=== PATIENT | male | born 1985 | race Caucasian/White ===

== ENCOUNTER 2021-01-06 11:50 | Inpatient (IN) | payer OTHER ==
[~2021-01-06] VITALS: Ht 165.1 cm; Wt 62.1 kg
[2021-01-06 12:02] VITALS: BP 129/77
--- NOTE | 2021-01-06 12:04 | NUR ---
YAO BARAHONA FRIEND [address] [facility] [id number]
[2021-01-06 13:45] LABS: BASOPHILS 0.3 % (0.0-2.0); EOSINOPHILS 0.1 % (0.0-3.0); HEMATOCRIT 45.9 % (42.0-52.0); HEMOGLOBIN 15.7 gm/dL (14.0-18.0); LYMPHOCYTES 5.2 % (24.0-44.0); MCH 31.3 pg (26.0-34.0); MCHC 34.2 g/dL (28.0-37.0); MCV 91.5 fL (80.0-100.0); MONOCYTES 5.1 % (1.0-8.0); PLATELET COUNT 276 thou/uL (150-400); POLYS 89.3 % (36.0-66.0); RBC 5.02 mil/uL (4.50-6.00); RDW 12.8 % (10.5-14.5); WBC 14.5 thou/uL (4.0-11.0)
[2021-01-06 13:46] LABS: URINE BILIRUBIN NEGATIVE (Negative); URINE BLOOD 1+ (Negative); URINE CLARITY CLEAR; URINE COLOR YELLOW; URINE GLUCOSE-RANDOM* NEGATIVE (Negative); URINE KETONES NEGATIVE (Negative); URINE LEUKOCYTES-REFLEX NEGATIVE (Negative); URINE NITRITE-REFLEX NEGATIVE (Negative); URINE PROTEIN (DIPSTICK) NEGATIVE (Negative); URINE SPECIFIC GRAVITY 1.025 (1.005-1.035); URINE UROBILINOGEN 0.2 E.U./dl (0.2-1.0)
[2021-01-06 14:05] LABS: BACTERIA-REFLEX 1-9 Few /HPF (None Seen); CASTS None Seen /LPF (None Seen); CRYSTALS None Seen /LPF (None Seen); MUCUS >6 Heavy strn/LPF (None Seen); SQUAMOUS 0-3 Few /LPF (0-3); URINE RBC 0-2 Rare /HPF (0-2); URINE WBC-REFLEX 0-5 Rare /HPF (0-5)
[2021-01-06 14:11] LABS: CREATININE 0.7 mg/dL (0.7-1.3); POTASSIUM 3.4 mmol/L (3.5-5.1)
[2021-01-06 14:17] LABS: ALBUMIN 4.4 g/dL (3.4-5.0); TOTAL PROTEIN 7.9 g/dL (6.4-8.2)
[2021-01-06 18:26] VITALS: BP 127/81
[2021-01-06 19:02] VITALS: BP 128/75
[2021-01-06 22:01] VITALS: BP 133/89
[2021-01-06 23:48] VITALS: BP 126/83
--- NOTE | 2021-01-07 01:09 | NUR ---
PT ADMITTED AT 21:50 FROM RR. S/P EMERGENT APPENDECTOMY ALERT AND ORIENTED X4. RWANDAN SPEAKING ONLY. ADMISSION QUESTIONS OBTAINED WITH HELP OF RWANDAN SPEAKING DOUBLE BACK OPERATOR VIA IPAD. HRR . LCTA AND UNLABORED ON RA. VSS LOW GRADE TEMP. 99.6. ABDOMINAL INCISIONS LOOK WELL APPROXIMATED. NO BLEEDING NOTED. ALL BRINE PURIFIER. BT NPO FOOR NOW UNTIL BF. WILL ADVANCE TOLERATED. NO C/O N/V PRESENTLY. NO S/S COVID NOTED. PT INSTRUCTED ON FALL PRECAUTIONS. CALL LIGHT IN REACH. BED ALARM ON. IVFS INFUSING WITHPUT DIFFICULTY.
[2021-01-07 03:58] VITALS: BP 108/68
--- NOTE | 2021-01-07 05:52 | NUR ---
PT RESTING QUIETLY. RATED ABDOMINAL PAIN 4/10 AND HEAD ACHE 4/10 . 1 MG MORPHINE IV GIVEN. BOWEL SOUNDS ARE HYPOACTIVE. NPO FOR NOW UNTIL BREAKFAST . NO C/O NAUSEA OR VOMITING NOTED.
[2021-01-07 06:30] LABS: BASOPHILS 0.1 % (0.0-2.0); HEMATOCRIT 43.4 % (42.0-52.0); HEMOGLOBIN 14.6 gm/dL (14.0-18.0); MCHC 33.7 g/dL (28.0-37.0); MCV 91.9 fL (80.0-100.0); MONOCYTES 0.8 % (1.0-8.0); PLATELET COUNT 275 thou/uL (150-400); POLYS 90.1 % (36.0-66.0); RBC 4.72 mil/uL (4.50-6.00); RDW 12.7 % (10.5-14.5); WBC 7.8 thou/uL (4.0-11.0)
[2021-01-07 06:47] LABS: ALBUMIN 3.6 g/dL (3.4-5.0); CALCIUM 8.2 mg/dL (8.5-10.1); CREATININE 0.9 mg/dL (0.7-1.3); PHOSPHORUS 3.1 mg/dL (2.5-4.9); POTASSIUM 3.6 mmol/L (3.5-5.1)
[2021-01-07 07:30] VITALS: BP 109/68
--- NOTE | 2021-01-07 13:19 | NUR ---
INITIAL ASSESSMENT: Received consult for discharge planning. SW reviewed chart and spoke with nursing. Pt was admitted from home due to acute appendicitis. Pt had emergent surgery yesterday. Pt had positive COVID test and is in Enhanced Isolation. Pt is not requiring O2. Pt is on IV abx and IV steroids. ID consulted. Pt's primary language is Thai. Pt does not have health insurance. Med Assist to follow up with pt to assist with possible Medicaid application/financial assistance. FARSHAD is following to assist as needed with discharge planning.
--- NOTE | 2021-01-07 16:27 | NUR ---
CARE ASSUMED AT 0700, PT ALERT AND ORIENTED X4, CYPRIOT SPEAKING. PT DENIES CHEST PAIN, NAUSEA AND VOMITTING. MONOR ABDOMINA PAIN DUE TO LAP SURGERY, PT STATES PAIN IS TOLERABLE. BOWEL SOUNDS PRESENT, BUT HYPOACTIVE. PT STATED HE IS PASSING GAS. USES CALL LIGHT APPROPRIATELY, DENIES ANY NEEDS SANDRA. WILL CONTINUE TO MONITOR.
--- NOTE | 2021-01-07 16:36 | HC ---
[facility] [place] [address] [place] [address] CONSULTATION Name: TALA ALVAREZ Room #: 353-P ADM IN M.R.#: [id number] Admission: 01/06/21 Attend Phys: Adebayo Kent MD Discharge: Date of : 81 Report #: [id number] THIS REPORT FOR: cc: FAM - No family physician/PCP FAM - No family physician/PCP Maurice Valdez MD ~ DATE OF SERVICE: 01/07/2021 INFECTIOUS DISEASE CONSULTATION ATTENDING PHYSICIAN: Dr. Kent. REASON FOR EVALUATION: Acute appendicitis, also positive COVID-19 testing. HISTORY OF PRESENT ILLNESS: Chart reviewed, patient examined. This is a 35-year-old without significant medical history. He is a primary Kinyarwanda speaker, who was admitted through the Emergency Room with complaints of abdominal pain, had associated nausea with emesis as well. Apparently denied fevers, was evaluated and CT raised question of acute appendicitis. He was taken, underwent laparoscopic evaluation, was confirmed to have appendicitis and underwent appendectomy, uncomplicated, no evidence of perforation. Postop, does have some degree of pain, discomfort. As per the evaluation, was confirmed to have a positive COVID-19 PCR, was empirically started on therapy with ceftriaxone and azithromycin. Other inflammatory markers were generally unremarkable. Urinalysis, 0-5 white cells. He denies any significant pulmonary or gastrointestinal complaints at this point. ALLERGIES: None known. MEDICATIONS: Include azithromycin, ascorbic acid, ceftriaxone, zinc, methylprednisolone, oxycodone, docusate, ibuprofen, acetaminophen, hydromorphone as needed. PAST MEDICAL HISTORY: Otherwise, unremarkable. SOCIAL HISTORY: Nonsmoker. No illicit drug use. Occasional ethanol. FAMILY HISTORY: Noncontributory. REVIEW OF SYSTEMS: Otherwise, unremarkable. PHYSICAL EXAMINATION: GENERAL: He is alert, cooperative, in peve-tr-cvplywum distress, reasonably well nourished. VITAL SIGNS: Temperature 99.3, pulse 104, respirations 20, blood pressure [facility] [address] [place] [address] CONSULTATION Name: TALA ALVAREZ Room #: [address] [place] [address]#: [id number] Admission: 01/06/21 Attend Phys: Adebayo Kent MD Discharge: Date of : 81 Report #: [id number] 109/68. SKIN: Warm, dry, no rashes. HEENT: Normocephalic. Extraocular muscles intact. NECK: Supple. LUNGS: Clear to auscultation bilaterally. HEART: Regular. Borderline tachycardic. I do not appreciate a murmur. ABDOMEN: Somewhat firm, mildly tender to percussion. The stab wounds are otherwise unremarkable. GENITOURINARY AND RECTAL: Deferred. LABORATORY DATA: Chest x-ray this morning showed no acute cardiopulmonary abnormality. Electrolytes: Sodium 137, potassium 3.6, chloride 104, bicarbonate is 22, anion gap of 11, BUN and creatinine 10 and 0.9, albumin of 3.6, estimated GFR of 95. CBC: White count 7.8, H and H 14.6 and 43.4, platelets of 275. Sed rate of 7. Procalcitonin less than 0.05. Ferritin 212. COVID-19 PCR was positive. Liver functions unremarkable. ASSESSMENT: Acute appendicitis without perforation. Additionally, has a positive coronavirus test. At this point, he is not symptomatic from the latter. We will plan to continue empiric therapy. At this point, he is taking p.o. well. Likely transition to oral antibiotics soon. In event of any clinical deterioration, especially from a pulmonary standpoint, I would like to introduce additional therapy such as ivermectin, remdesivir. Would increase activity as allowed. Encourage incentive spirometry. <ELECTRONICALLY SIGNED> By: Maurice Valdez MD 01/07/21 1636 [id number] Maurice Valdez MD /nt
[2021-01-07 19:19] VITALS: BP 96/55
--- NOTE | 2021-01-07 21:30 | NUR ---
PT WATCHING TV. IVF INTACT. PT USING PHONE EDUCATIONAL ADMINISTRATION TEACHER TO COMMUNICATE. MEDICATIONS PROVIDED. ABD LAP SITES DRY INTACT, BS DECREASED. PT REAMINS STEADY AND INDEP WITH URINAL NEEDS. PT PROVIDED FLUIDS.
[2021-01-08 04:50] VITALS: BP 105/68
[2021-01-08 07:50] VITALS: BP 113/74
[2021-01-08 10:38] VITALS: BP 113/74
[2021-01-08 10:42] VITALS: BP 113/74
--- NOTE | 2021-01-08 10:57 | NUR ---
Assess due to RD consult. Emergent surgery 01/06 for appendicitis. Pt also COVID +. diet has advanced to regular, eating 100% of meals. Low nutrition risk
--- NOTE | 2021-01-08 11:10 | NUR ---
DC anticipated today. Superintendent Service visited with the pt via phone in Macedonian. He is aware of dc and will need a covid cab ride home as well as assist with any dc scripts. Awaiting ID recommendations. Nursing aware of above and pt will be provided with the [place] version of the [facility] as well as the [facility] info regarding covid. He notes that he does not live with his friend Jacinta. His address is [address] [place] [address]. He has several roommates but they all work long hours and are not home at the same time. He will let them know he is covid positive and encourage them to wear masks in the home and get tested. Jacinta got tested earlier today. He is up ad olay and tolerating a po diet. He has a f/u with surgery in 2wks. He is feeling good and denies any dc concerns. Cm to vouch scripts and a cab ride this afternoon once his dc orders are finalized.
--- NOTE | 2021-01-08 12:15 | NUR ---
care assumed at 0700, pt alert and oriented x4, pt is vietnamese speaking, uses google translate. pt denies any nausea and vomitting. states pain is tolerable. bowel sounds active, had a bowel movement todya. anticipating for discharge today. case lashay nguyễn had a lengthy conversation with pt, explaining about isolating and cleaning house post covid. uses call light apporpriate.
[2021-01-08] MEDS ORDERED: MEDROLDOSEPACK PO (12:48)
[2021-01-08] MEDS ORDERED: MIRALAX17 GM PO (13:13)
[2021-01-08] MEDS ORDERED: IBUPROFEN 200200 M1 PO (13:13)
[2021-01-08] MEDS ORDERED: OXYCODONE HCL 55 MG PO (13:13)
[2021-01-08] MEDS ORDERED: ACETAMINOPHEN325 M1 PO (13:13)
[2021-01-08 14:09] VITALS: BP 113/74
--- NOTE | 2021-01-08 16:53 | NUR ---
DISCHARGE INSTRUCTION GIVEN AND EXPLAIN TO PT, NEW MEDICATIONS INFORMATION PRINTED OUT IN CHINESE FOR PT. INSTRUCTION ON HOW TO TAKE MEDICATIONS EXPLAIN USING A HOSPITAL INSURANCE CLERK. PT REPEATED INSTRUCTION TO ME AND DENIED ANY QUESTIONS. SPEND A LENGTHY AMOUNT OF TIME EXPLAINING INSTRUCTION TO PT. ALL PT BELINGINGS PACKED. IV D/C. WAITING FOR PT CAB TO GET HERE
--- NOTE | 2021-01-10 16:06 | PATH ---
[facility] [address] [place] [address] PATHOLOGY RPT PROCEDURE Name: TALA ALVAREZ Room #: 353-P [facility] IN M.R.#: [id number] Admission: 01/06/21 Date of : 81 Discharge: 01/08/21 Report #: [id number] Path Case #: [id number] [facility] Accession Number: [id number] . 01 Material submitted: . appendix - APPENDIX . 01 Clinical history: . APPENDICITIS . 02 Diagnosis: Appendix "appendix", appendectomy: - Acute suppurative appendicitis with inflammation extending into the serosa and into the fat. (SIVAN/db; 01/10/2021) LBQ 01/10/2021 1116 Local . 02 Electronically signed: . Christiano Tracy MD, Pathologist NPI- [id number] . 01 Gross description: . The specimen is received in formalin, labeled "Tala Alvarez, appendix". Received is a vermiform appendix measuring 9.5 cm in length by up to 1.1 cm in diameter with a large amount of attached mesoappendix. The serosal surface is pink-lino to dusky pink-mcgovern in appearance with overlying adhesions. The surgical margin is closed with a line of emery. The emery are removed and the new margin is inked black. Sectioning reveals sectioning reveals a patent lumen filled with a slight amount of fecal material. The specimen is submitted representatively in cassettes A1 and A2, with the proximal margin and bisected tip submitted in cassette A1. (CAA; 01/08/2021) QAC/QAC 01/08/2021 1058 Local . 02 Pathologist provided ICD-10: K35.80 . 02 CPT . 537334 Specimen Comment: Report sent to Performed at: [address] [id number] MD Christiano Tracy MD Phone: [phone] Performed at: 02 [facility] [id number] [place] [id number] [place] [address] PATHOLOGY RPT PROCEDURE Name: TALA ALVAREZ Room #: 353-P DIS IN M.R.#: [id number] Admission: 01/06/21 Date of : 81 Discharge: 01/08/21 Report #: [id number] Path Case #: [id number] MD Stacey Bond MD Phone: [phone]
== END 2021-01-08 18:12 | disposition home or self-care (01) | DRG 341 ==
LOC: ER 11:50 → EROBS 15:47 → 4S 18:59 → 3W 19:06
PROVIDERS: Emergency Medicine; Nurse Practitioner Family; ADMIT Surgery; ATTEND Surgery
PROC: 0DTJ4ZZ Resection of Appendix, Percutaneous Endoscopic Approach (ICD-10-PCS; principal; 2021-01-06)
DX: K35.80 Unspecified acute appendicitis (principal); U07.1 COVID-19; J12.82 Pneumonia due to coronavirus disease 2019; D72.829 Elevated white blood cell count, unspecified; E87.6 Hypokalemia; Z79.899 Other long term (current) drug therapy
CPT/HCPCS: 10080; 50101; 50411; 50555; 50558; 50739; 50740; 52265; 53307; 53310; 53312; 54022; 54118; 56462; 56525; 56526; 58574; 62110; 62900